=== PATIENT | female | born 1995 | race Two or more races ===

== ENCOUNTER 2016-08-31 08:12 | Inpatient (IN) | payer MEDICAID ==
[~2016-08-31] VITALS: Ht 149.9 cm; Wt 72.0 kg
[~2016-08-31 08:12] MED LIST: [UNRECOGNIZED DRUG - REMARK]
--- NOTE | 2016-08-31 08:30 | TRIAGE ---
OB Triage Datetime Report Generated by CPN: 08/31/2016 08:30 Datetime: 08/31/2016 08:27 Time of Arrival: 08/31/2016 08:10 EGA: 37.6 Arrived By: Ambulatory Arrived From: Home Chief Complaint: UCS SINCE 0500 Movement: Present Time Contractions Began: 08/31/2016 05:00 Rupture of Membranes: Denies Vaginal Discharge: Denies Recent Sexual Intercouse: Denies Abdominal Trauma: Not Applicable Patient Complaints: Contractions Time Provider Notified: 08/31/2016 08:28 Provider Notified: DR MIMS Initial Plan: EFM,CALL DR MIMS Datetime: 08/31/2016 08:26 Maternal Assessment Level of Consciousness: Fully Conscious DTR's/Clonus: DTRs 2+; No Clonus Headache: Denies Blurred Vision: No Respiratory Effort: Unlabored; Regular Rhythm; Equal Expansion Breath Sounds, Left: Clear and Equal Breath Sounds, Right: Clear and Equal Nausea/Vomiting: Denies RUQ Epigastric Pain: Denies Facial Edema: None Temperature Route: Axillary Fall Risk Assessment History of Falling: (0) No Secondary Diagnosis: (0) No Ambulatory Aid: (0) Bedrest/Nurse Assist IV Therapy: (0) No Gait: (0) Normal/Bedrest/Immobile Mental Status: (0) Oriented to Own Ability Fall Score: 0 Fall Risk Score Definition: No Risk: No action required
[2016-08-31 08:33] VITALS: Ht 149.9 cm; Wt 72.0 kg
[2016-08-31 08:34] VITALS: BP 113/72; PULSE 68; RESP 20
[2016-08-31] MEDS ORDERED: LACTATED RINGER'S 1,000 ML IV SCH (08:51)
[2016-08-31] MEDS ORDERED: MISOPROSTOL 200 MCG TAB PR PRN (09:00)
[2016-08-31] MEDS ORDERED: METHYLERGONOVINE 0.2 MG INJ IM PRN (09:00)
[2016-08-31] MEDS ORDERED: LACTATED RINGER'S 1,000 ML IV PRN (09:00)
[2016-08-31] MEDS ORDERED: IBUPROFEN 600 MG TAB PO PRN (09:00)
[2016-08-31] MEDS ORDERED: BUTORPHANOL 2 MG INJ IV PRN (09:00)
[2016-08-31] MEDS ORDERED: CARBOPROST 250 MCG INJ IM PRN (09:00)
[2016-08-31] MEDS ORDERED: OXYTOCIN 30 UNITS/LR 500 ML IV SCH ×3 (09:00→10:30)
[2016-08-31] MEDS ORDERED: LIDOCAINE 1% (MPF) 30 ML INJ INJ PRN (09:00)
[2016-08-31] MEDS ORDERED: OXYTOCIN 30 UNITS/LR 500 ML IV PRN (09:00)
[2016-08-31 10:05] LABS: BASOPHIL # 0.1 10^3/ul (0.0-0.1); BASOPHILS % 0.6 % (0.0-2.0); EOSINOPHILS # 0.1 10^3/ul (0.0-0.5); EOSINOPHILS % 0.5 % (0.0-7.0); HEMATOCRIT 37.8 % (37.0-47.0); HEMOGLOBIN 12.6 g/dl (12.0-16.0); LYMPHOCYTES % 16.8 % (15.0-51.0); MEAN CORPUSCULAR HEMOGLOBIN 29.6 pg (29.0-33.0); MEAN CORPUSCULAR HGB CONC 33.4 g/dl (32.0-37.0); MEAN CORPUSCULAR VOLUME 88.7 fl (82.0-101.0); MEAN PLATELET VOLUME 8.9 fl (7.4-10.4); MONOCYTE # 0.7 10^3/ul (0.3-0.9); MONOCYTES % 5.7 % (0.0-11.0); NEUTROPHIL # 9.2 10^3/ul (1.6-7.5); NEUTROPHILS % 76.4 % (39.0-77.0); PLATELET COUNT 180 10^3/UL (140-440); RED BLOOD COUNT 4.26 10^6/ul (4.20-5.40); RED CELL DISTRIBUTION WIDTH 14.3 % (11.5-14.5)
[2016-08-31 10:08] LABS: CONDITION 1; INR 0.91; PARTIAL THROMBOPLASTIN TIME 30.2 Sec (25.0-35.0); PROTIME 12.3 Sec (12.2-14.2)
--- NOTE | 2016-08-31 12:12 | HP ---
Date/Time of Note Date/Time of Note DATE: 08/31/16 TIME: 12:06 OB - History Hx of Present Free Text/Dictation 21 years old female 37 weeks 6 days admitted to [facility] in active labor pelvic examination at the time of admission cervical dilatation 5 cm 90% effacement vertex presentation at -1 station with intact bulging bag. Chief Complaint: labor pain Estimated Due Date: Sep 15, 2016 : 1 Para: 0 Care: Limited Care Ultrasounds: Normal mid trimester US Obstetrical Complications: None Past Family/Social History * Past Medical, Surgical, Family and Obstetric Histories reviewed from chart. Blood Type: O+ Rubella: immune RPR/VDRL: Negative GBS Status: Negative HBsAG: Negative OB Admission Exam Vital Signs Vital Signs Vital Signs Date Time Temp Pulse Resp B/P Pulse Ox O2 Delivery O2 Flow Rate FiO2 08/31/16 08:34 98.1 68 20 113/72 99 Room Air Physical Exam HEENT: WNL Heart: Rhythm Normal Lungs: Clear, Equal Abdomen: WNL Extremities: Normal Reflexes: Normal Cervical Dilatation: 5cm Effacement: 100% Station: -1 Membranes: Intact Heart Rate: 130's Accelerations: Accelerations Present Decelerations: No Decelerations Varibility: Moderate Contractions on Admission: < 5 Minutes Apart Intensity: Firm Last 72 hours Lab Results CBC & BMP 08/31/16 08:45 LISANDRO HUMPHREYS MD Aug 31, 2016 12:12
--- NOTE | 2016-08-31 12:16 | LDN ---
Date/Time of Note Date/Time of Note DATE: 08/31/16 TIME: 12:12 Delivery Summary Normal spontaneous vaginal delivery of a baby girl from MELODIE position shoulder delivered without any difficulty as well as the rest of the baby's body placenta continuous expulsion inspected overdue and intact membranes patient sustained or right labia separation which was repaired 3/0 chromic catgut estimated blood loss 200 mL Problems: Infant Delivery Information Sex Infant Sex: female Apgars 1 Minute: 9 5 Minute: 9 Suctioning Nose & mouth suctioned at gloria: Yes Delee suction performed: No Umbilical Cord Umbilical cord with: 3 Vessels Cord presentations: no nuchal cord Cord Blood was obtained: Yes LISANDRO HUMPHREYS MD Aug 31, 2016 12:16
[2016-08-31 14:30] VITALS: BP 104/60; PULSE 76; RESP 18
[2016-08-31] MEDS ORDERED: DIBUCAINE 1% 30 GM OINT PR PRN (15:00)
[2016-08-31] MEDS ORDERED: ACETAMINOPHEN 325 MG TAB PO PRN (15:00)
[2016-08-31] MEDS ORDERED: BENZOCAINE 20% 56 ML SPRAY TOP PRN (15:00)
[2016-08-31] MEDS ORDERED: ACETAMINOPHEN/CODEINE #3 TAB PO PRN ×2 (15:00)
[2016-08-31] MEDS ORDERED: LANOLIN 7 GM TUBE TOP PRN (15:00)
[2016-08-31] MEDS ORDERED: WITCH HAZEL/GLYCERIN PAD PR PRN (15:00)
[2016-08-31] MEDS ORDERED: ONDANSETRON 4 MG INJ IV PRN (15:00)
[2016-08-31] MEDS ORDERED: OXYCODONE/ASPIRIN (4.88/325) TAB PO PRN ×2 (15:00)
[2016-08-31 16:30] VITALS: BP 110/58; PULSE 70; RESP 16
[2016-08-31] MEDS: OXYTOCIN 30 UNITS/LR 500 ML IV SCH ×2 (16:57→19:00)
[2016-08-31] MEDS: IBUPROFEN 600 MG TAB PO SCH (17:38)
--- NOTE | 2016-08-31 18:10 | OPRPT ---
Intraop Record Datetime Report Generated by CPN: 08/31/2016 14:15 Datetime: 08/31/2016 08:26 Food Allergies/Reactions: NONE Latex Allergies/Reactions: No Latex Allergies Datetime: 08/25/2016 12:49 Drug Allergies/Reactions: No Known Drug Allergy/WI (06/25/2010)
--- NOTE | 2016-08-31 18:10 | DELSUM ---
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 Babies in Womb: 1 Attempted: No Labor Anesthesia: None LABOR INFORMATION Reason for Induction: Not Applicable Onset of Labor: 08/31/2016 05:00 Complete Dilatation: 08/31/2016 11:18 Oxytocin: Augmentation Group B Beta Strep: Negative Antibiotics # of Doses: 0 Antibiotics Time of Last Dose: n/a Steroids Given: None Reason Steroids Not Administered: Not Applicable MEMBRANES Membranes Rupture Method: Artificial Membranes Rupture Method: Artificial Rupture of Membranes: 08/31/2016 11:45 Length of Rupture (hr): 0.03 Amniotic Fluid Color: Clear Amniotic Fluid Color: Clear Amniotic Fluid Amount: Small Amniotic Fluid Amount: Small Amniotic Fluid Odor: Normal STAGES OF LABOR Stage 1 hr: 6 Stage 1 min: 18 Stage 2 hr: 0 Stage 2 min: 29 Stage 3 hr: 0 Stage 3 min: 3 Total Time in Labor hr: 6 Total Time in Labor min: 50 VAGINAL DELIVERY Episiotomy: None Laceration Extension: N/A Other Laceration: lybia laceration Laceration Repair: Yes Initial Vag Sponge Count: 10 Final Vag Sponge Count: 10 Initial Vag Sharps Count: 1 Final Vag Sharps Count: 2 Sponge Count Correct: Yes Sharps Count Correct: Yes Count Comment: 10 raytex add 1 sharp BABY A INFORMATION Infant Delivery Date/Time: 08/31/2016 11:47 Method of Delivery: Vaginal Method of Delivery: Vaginal Born in Route : No : N/A Forceps: N/A Vacuum Extraction: N/A Shoulder Dystocia : N/A SHOULDER DYSTOCIA BABY A Delivery Date/Time: 08/31/2016 11:47 PRESENTATION/POSITION BABY A Presentation: Cephalic Cephalic Presentation: Vertex Vertex Position: Left Occipital Anterior Breech Presentation: N/A PLACENTA INFORMATION BABY A Placenta Delivery Time : 08/31/2016 11:50 Placenta Method of Delivery: Spontaneous Placenta Method of Delivery: Spontaneous Placenta Status: Delivered SCORES BABY A Heart Rate 1 min: >100 bpm Resp Effort 1 min: Good Cry Reflex Irritability 1 min: Cough/Sneeze/Pulls Away Muscle Tone 1 min: Active Motion Color 1 min: Body [place], Extremit Blue Resuscitation Effort 1 min: Tactile Stimulation SCORE 1 MIN: 9 Heart Rate 5 min: >100 bpm Resp Effort 5 min: Good Cry Reflex Irritability 5 min: Cough/Sneeze/Pulls Away Muscle Tone 5 min: Active Motion Color 5 min: Body [place], Extremit Blue SCORE 5 MIN: 9 INFANT INFORMATION BABY A Gestational Age at Delivery: 37.6 Gestational Status: Early Term- 37- 38.6 Weeks Outcome : Liveborn Infant Condition : Stable Sex: Female Sex: Female IDENTIFICATION/MEDS BABY A ID Band Number: [id number] ID Band Location: Right Leg; Left Arm Sensor Applied: Yes Sensor Number: [id number] Sensor Location : Cord Clamp WEIGHT/LENGTH BABY A Infant Birthweight (gm): 2740 Weight (lb): 6 Infant Weight (oz): 1 Infant Length (in): 18.00 Infant Length (cm): 45.72 CORD INFORMATION BABY A No. 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
--- NOTE | 2016-08-31 18:10 | DELSUM ---
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 Babies in Womb: 1 Attempted: No Labor Anesthesia: None LABOR INFORMATION Reason for Induction: Not Applicable Onset of Labor: 08/31/2016 05:00 Complete Dilatation: 08/31/2016 11:18 Oxytocin: Augmentation Group B Beta Strep: Negative Antibiotics # of Doses: 0 Antibiotics Time of Last Dose: n/a Steroids Given: None Reason Steroids Not Administered: Not Applicable MEMBRANES Membranes Rupture Method: Artificial Membranes Rupture Method: Artificial Rupture of Membranes: 08/31/2016 11:45 Length of Rupture (hr): 0.03 Amniotic Fluid Color: Clear Amniotic Fluid Color: Clear Amniotic Fluid Amount: Small Amniotic Fluid Amount: Small Amniotic Fluid Odor: Normal STAGES OF LABOR Stage 1 hr: 6 Stage 1 min: 18 Stage 2 hr: 0 Stage 2 min: 29 Stage 3 hr: 0 Stage 3 min: 3 Total Time in Labor hr: 6 Total Time in Labor min: 50 VAGINAL DELIVERY Episiotomy: None Laceration Extension: N/A Other Laceration: lybia laceration Laceration Repair: Yes Initial Vag Sponge Count: 10 Final Vag Sponge Count: 10 Initial Vag Sharps Count: 1 Final Vag Sharps Count: 2 Sponge Count Correct: Yes Sharps Count Correct: Yes Count Comment: 10 raytex add 1 sharp BABY A INFORMATION Infant Delivery Date/Time: 08/31/2016 11:47 Method of Delivery: Vaginal Method of Delivery: Vaginal Born in Route : No : N/A Forceps: N/A Vacuum Extraction: N/A Shoulder Dystocia : N/A SHOULDER DYSTOCIA BABY A Delivery Date/Time: 08/31/2016 11:47 PRESENTATION/POSITION BABY A Presentation: Cephalic Cephalic Presentation: Vertex Vertex Position: Left Occipital Anterior Breech Presentation: N/A PLACENTA INFORMATION BABY A Placenta Delivery Time : 08/31/2016 11:50 Placenta Method of Delivery: Spontaneous Placenta Method of Delivery: Spontaneous Placenta Status: Delivered SCORES BABY A Heart Rate 1 min: >100 bpm Resp Effort 1 min: Good Cry Reflex Irritability 1 min: Cough/Sneeze/Pulls Away Muscle Tone 1 min: Active Motion Color 1 min: Body [place], Extremit Blue Resuscitation Effort 1 min: Tactile Stimulation SCORE 1 MIN: 9 Heart Rate 5 min: >100 bpm Resp Effort 5 min: Good Cry Reflex Irritability 5 min: Cough/Sneeze/Pulls Away Muscle Tone 5 min: Active Motion Color 5 min: Body [place], Extremit Blue SCORE 5 MIN: 9 INFANT INFORMATION BABY A Gestational Age at Delivery: 37.6 Gestational Status: Early Term- 37- 38.6 Weeks Outcome : Liveborn Infant Condition : Stable Sex: Female Sex: Female IDENTIFICATION/MEDS BABY A ID Band Number: [id number] ID Band Location: Right Leg; Left Arm Sensor Applied: Yes Sensor Number: [id number] Sensor Location : Cord Clamp WEIGHT/LENGTH BABY A Infant Birthweight (gm): 2740 Weight (lb): 6 Infant Weight (oz): 1 Infant Length (in): 18.00 Infant Length (cm): 45.72 CORD INFORMATION BABY A No. Cord Vessels: 3 Nuchal Cord : N/A Cord Blood Taken: Yes Suction: Mouth; Nose ASSESSMENT BABY A Infant Complications: None Physical Findings at Delivery: Within Normal Limits Infant Respirations: Appears Normal Machine Attendant/ALS Called : No Care By: scott hartc Transferred To: Remains with Mother
[2016-08-31 19:40] VITALS: BP 104/61; PULSE 81; RESP 20
[2016-08-31] MEDS: SENNA/DOCUSATE NA (8.6MG/50MG) TAB PO SCH (20:58)
[2016-09-01 04:00] VITALS: BP 102/62; PULSE 77; RESP 19
[2016-09-01] MEDS: IBUPROFEN 600 MG TAB PO SCH ×5 (05:48→23:20)
[2016-09-01 06:28] LABS: BASOPHILS % 0.2 % (0.0-2.0); EOSINOPHILS # 0.1 10^3/ul (0.0-0.5); EOSINOPHILS % 0.5 % (0.0-7.0); HEMATOCRIT 30.6 % (37.0-47.0); HEMOGLOBIN 10.5 g/dl (12.0-16.0); LYMPHOCYTES # 2.4 10^3/ul (0.8-2.9); LYMPHOCYTES % 18.4 % (15.0-51.0); MEAN CORPUSCULAR HEMOGLOBIN 30.1 pg (29.0-33.0); MEAN CORPUSCULAR HGB CONC 34.3 g/dl (32.0-37.0); MEAN CORPUSCULAR VOLUME 87.8 fl (82.0-101.0); MEAN PLATELET VOLUME 8.3 fl (7.4-10.4); MONOCYTE # 0.7 10^3/ul (0.3-0.9); MONOCYTES % 5.1 % (0.0-11.0); NEUTROPHIL # 9.7 10^3/ul (1.6-7.5); NEUTROPHILS % 75.8 % (39.0-77.0); PLATELET COUNT 156 10^3/UL (140-440); RED BLOOD COUNT 3.48 10^6/ul (4.20-5.40); RED CELL DISTRIBUTION WIDTH 13.9 % (11.5-14.5); UNCORRECTED WBC 12.8 10^3/ul (4.8-10.8); WHITE BLOOD COUNT 12.8 10^3/ul (4.8-10.8)
[2016-09-01 06:35] LABS: CONDITION 1
[2016-09-01 08:00] VITALS: BP 101/55; PULSE 73; RESP 16
[2016-09-01] MEDS: SENNA/DOCUSATE NA (8.6MG/50MG) TAB PO SCH ×2 (08:55→21:06)
[2016-09-01 11:30] VITALS: BP 111/61; PULSE 76; RESP 18
--- NOTE | 2016-09-01 14:59 | PN ---
Date/Time of Note Date/Time of Note DATE: 09/01/16 TIME: 14:58 OB Subjective Subjective Subjective day 1 Vital sign a stable afebrile abdomen soft uterus firm lochia normal extremity normal ambulation recommended LISANDRO HUMPHREYS MD Sep 01, 2016 14:58
[2016-09-01 16:10] VITALS: BP 99/61; PULSE 79; RESP 16
[2016-09-01 20:06] VITALS: BP 115/53; PULSE 81; RESP 20
[2016-09-02 04:05] VITALS: BP 119/69; PULSE 72; RESP 20
[2016-09-02] MEDS: IBUPROFEN 600 MG TAB PO SCH ×2 (05:27→12:11)
[2016-09-02 08:20] VITALS: BP 94/54; PULSE 78; RESP 17
[2016-09-02] MEDS: SENNA/DOCUSATE NA (8.6MG/50MG) TAB PO SCH (08:53)
[2016-09-02] MEDS ORDERED: MEASLES,MUMPS,RUBELLA VACCINE INJ SC* ONE (09:00)
--- NOTE | 2016-09-02 09:50 | DS ---
Date/Time of Note Date/Time of Note DATE: 09/02/16 TIME: 09:48 Obstetrical Discharge Record Final Diagnosis Final Diagnosis: Term delivered Vaginal Delivery Obstetrical Delivery: Spontaneous Condition on Discharge Physical Assessment Last Vitals: day 2 Vital sign a stable afebrile abdomen soft uterus firm lochia normal patient discharged home with instruction to be seen at the clinic in 2 weeks Voiding: Yes Breast: Filling Fundus: Firm Calf Tenderness: No Patient Condition: Good LISANDRO HUMPHREYS MD Sep 02, 2016 09:50
== END 2016-09-02 17:22 | disposition home or self-care (01) | DRG 775 ==
LOC: OBT 08:12 → L-D 08:13 → OBT 08:59 → L-D 08:59 → PP1 14:19
PROVIDERS: ADMIT Obstetrics & Gynecology; ATTEND Obstetrics & Gynecology
PROC: 10E0XZZ Delivery of Products of Conception, External Approach (ICD-10-PCS; principal; 2016-08-31)
DX: O80 Encounter for full-term uncomplicated delivery (principal); Z37.0 Single live birth; Z3A.37 37 weeks gestation of pregnancy
CPT/HCPCS: 36415; 76815; 85025; 85610; 85730; 86592; 86900; 86901; G0463; J2590; J7120